=== PATIENT | female | born 1950 | race Caucasian/White ===

== ENCOUNTER 2020-03-09 11:47 | Inpatient (IN) ==
[2020-03-09 12:23] LABS: Basophils # (auto) 0.06 K/uL (0-0.2); Basophils % (auto) 0.8 %; Eosinophils # (auto) 0.48 K/uL (0-0.5); Eosinophils % (auto) 6.5 %; Hematocrit (blood only) 38.9 % (37-47); Hemoglobin 12.6 g/dL (12.0-16.0); Immature Granulocytes # (auto) 0.01 K/uL (0.00-0.02); Immature Granulocytes % (auto) 0.1 %; Lymphocytes # (auto) 2.78 K/uL (1.2-3.4); Lymphocytes % (auto) 37.9 %; Mean Corpuscular Hemoglobin 29.9 pg (25-34); Mean Corpuscular Hgb Conc 32.4 g/dL (32-36); Mean Corpuscular Volume 92.4 fL (80-100); Mean Platelet Volume 10.5 fL (7.4-10.4); Monocytes # (auto) 0.48 K/uL (0.11-0.59); Monocytes % (auto) 6.5 %; Neutrophils # (auto) 3.53 K/uL (1.4-6.5); Neutrophils % (auto) 48.2 %; Platelet Count 285 K/uL (130-400); RDW Coefficient of Variation 13.3 % (11.5-14.5); RDW Standard Deviation 44.4 fL (36.4-46.3); Red Blood Count 4.21 M/uL (4.2-5.4); White Blood Count 7.34 K/uL (4.8-10.8)
[2020-03-09 12:42] LABS: Alanine Aminotransferase 19 U/L (12-78); Albumin Level 3.6 gm/dl (3.4-5.0); Aspartate Aminotransferase 15 U/L (15-37); BUN Creatinine Ratio 14.4 (10-20); Blood Urea Nitrogen 13 mg/dl (7-18); Calcium 9.1 mg/dl (8.5-10.1); Carbon Dioxide 27 mmol/L (21-32); Chloride 108 mmol/L (98-107); Est GFR (African American) 74.6; Est GFR (Non-African American) 64.3; Glucose 89 mg/dl (70-99); Potassium 3.6 mmol/L (3.5-5.1); Sodium 141 mmol/L (136-145)
[2020-03-09 12:52] LABS: Albumin Globulin Ratio 1.1 (0.9-2); Alkaline Phosphatase 122 U/L (45-117); Bilirubin,Total 0.5 mg/dl (0.2-1); Globulin 3.3 gm/dl (2.5-4.0); Total Protein 6.9 gm/dl (6.4-8.2); Troponin I < 0.015 ng/ml (0-0.045)
--- NOTE | 2020-03-09 12:52 | XRay Report ---
XR chest 1V portable CLINICAL HISTORY: weakness COMPARISON STUDY: 03/22/2014 FINDINGS: The cardiac and mediastinal contours are normal. There is no evidence of focal pulmonary co nsolidation. There is no evidence of failure. No pleural effusions are visualized.[There are minor mcqueen bsegmental atelectatic changes at the left lung base. IMPRESSION: No active disease in the chest. ACT 112: Negative or not required by law. Electronically signed by: Jax Romeo M.D. 03/09/2020 12:50 PM
--- NOTE | 2020-03-09 15:38 | History & Physical Report ---
Date of Service March 09, 2020 Assessment & Plan (1) Dizziness: (2) Right leg weakness: -Admit to [facility] [place] with telemetry -Patient presenting from home with reports of an episode of severe dizziness and right leg weakness. Patient has been having issues with ongoing dizziness for the past several months however right leg weakness is new today. -Was evaluated by neuro-ophthalmology and had head and neck CTAs that were unremarkable. Brain MRI 06/2019 unremarkable as well. -Currently asymptomatic -Monitor on telemetry for arrhythmias, update echo -Stat head CT -Brain MRI/MRA, neck MRA -Neurology consult, Dr. Wilkins notified (3) DM type 2 (diabetes mellitus, type 2): -Hgb A1c 6.6 01/2020 -Hold oral agents and utilize NovoLog per protocol while hospitalized (4) HTN (hypertension): -BP controlled, continue amlodipine and lisinopril (5) DVT prophylaxis: -SQ Lovenox History of Present Illness Chief Complaint: Dizziness Primary Care Provider: Indira Garcia DO 69 year old female with PMH DM type II, HTN, gastroparesis, and other problems listed below who presents to the ED with reports of dizziness. This has been an ongoing issue for the patient for the past several months. Patient was evaluated by neuro-ophthalmology and head and neck CTAs were ordered and were unremarkable for findings. She also had a brain MRI 06/2019 that was unremarkable as well. Patient also participated in PT for dizziness however she reports no improvement in her symptoms. Patient reports that she woke up this morning feeling very nauseous. When she bent over to put her pants on, she reports she started to feel very dizzy and lightheaded. When she attempted to walk, she reports she felt as though she was drunk. She also stated that her right leg felt weak and could not support her. Her had to help her. She reports that the right leg weakness is new. Patient reports her symptoms persisted so she came to the ED, she reports she is currently not symptomatic. Patient denies any associated difficulty speaking or understanding. No facial droop was noted. Denies any loss of consciousness. Patient reports he otherwise has been feeling well recently. No other recent illnesses, fevers, chills. She denies abdominal pain, vomiting, diarrhea. No chest pain or shortness of breath. Denies any urinary symptoms. In the ED, patient was found to be intermittently bradycardic in the 50s. Vitals are otherwise stable. Labs are unremarkable. Allergies Allergy/AdvReac Type Severity Reaction Status Date / Time codeine Allergy ., Verified 03/09/20 14:08 phenobarbital Allergy . Verified 03/09/20 14:08 adhesive tape AdvReac Rash Unverified 03/09/20 14:08 Home Medications Home Medications Medication Instructions Recorded Confirmed Type amlodipine 2.5 mg PO DAILY 03/09/20 03/09/20 History aspirin [Aspir-81] 81 mg PO DAILY 03/09/20 03/09/20 History atorvastatin 20 mg PO DAILY 03/09/20 03/09/20 History calcium carbonate-vitamin D3 1 tab PO DAILY 03/09/20 03/09/20 History [Calcium 600 + D(3)] cholecalciferol (vitamin D3) 25 mcg PO DAILY 03/09/20 03/09/20 History [Vitamin D3] citalopram 20 mg PO DAILY 03/09/20 03/09/20 History famotidine 20 mg PO DAILY 03/09/20 03/09/20 History ferrous sulfate [iron] 325 mg PO DAILY 03/09/20 03/09/20 History flaxseed oil 1,000 mg PO Q OTHER DAY 03/09/20 03/09/20 History lisinopril 20 mg PO DAILY 03/09/20 03/09/20 History meclizine 25 mg PO TID PRN 03/09/20 03/09/20 History metformin 1,000 mg PO BID 03/09/20 03/09/20 History multivitamin 1 tab PO DAILY 03/09/20 03/09/20 History omeprazole 20 mg PO QAM 03/09/20 03/09/20 History vitamin A-vitamin C-vit E-min 1 tab PO DAILY 03/09/20 03/09/20 History [Ocuvite] Past Med/Surg History Medical History Carpal tunnel syndrome DM type 2 (diabetes mellitus, type 2) Dyslipidemia History of TMJ disorder HTN (hypertension) Surgical History H/O hand surgery History of carpal tunnel release of both wrists History of hysterectomy History of shoulder surgery Hx of cholecystectomy Family History (Updated 03/09/20 @ 16:15 by ADAM Guzman) Father Diabetes Mother Diabetes Social History (Updated 03/09/20 @ 16:16 by ADAM Guzman) Smoking Status: Never smoker Hx Alcohol Use: Yes Alcohol Intake Frequency: Monthly or Less Preferred Language: Surinamese Feels Safe at Home: Yes Review of Systems Review of Systems: ROS per HPI, all other systems reviewed and negative Physical Exam Physical Exam: Please refer to Dr. Blankenship's addendum for physical exam. Results & Data Results & Data ([facility]) Vital Signs (Past 12 Hours) Vital Signs Temp Pulse Pulse Resp BP BP Pulse Ox 03/09/20 15:00 71 15 138/68 96 03/09/20 14:30 51 L 13 173/70 H 95 03/09/20 14:07 64 17 143/63 H 03/09/20 14:06 62 24 03/09/20 13:35 53 L 14 03/09/20 13:34 67 71 20 161/73 H 153/68 H 98 03/09/20 13:31 150/71 H 03/09/20 13:30 65 17 146/67 H 03/09/20 13:00 56 L 15 155/64 H 97 03/09/20 12:30 52 L 16 158/65 H 97 03/09/20 12:08 50 L 14 166/68 H 99 03/09/20 12:07 58 L 21 100 03/09/20 12:02 57 L 17 176/92 H 100 03/09/20 11:51 36.8 C 58 L 18 144/74 H 99 03/09/20 11:48 100 Laboratory Results Short CBC 03/09/20 Range/Units 12:08 WBC 7.34 (4.8-10.8) K/uL Hgb 12.6 (12.0-16.0) g/dL Hct 38.9 (37-47) % Plt Count 285 (130-400) K/uL BMP 03/09/20 12:08 Sodium 141 Potassium 3.6 Chloride 108 H Carbon Dioxide 27 BUN 13 Creatinine 0.90 Glucose 89 Calcium 9.1 Cardiac Enzymes 03/09/20 Range/Units 12:08 Troponin I < 0.015 (0-0.045) ng/ml Liver Function 09/24/20 Range/Units 12:08 Total Bilirubin 0.5 (0.2-1) mg/dl AST 15 (15-37) U/L ALT 19 (12-78) U/L Alkaline Phosphatase 122 H (45-117) U/L Albumin 3.6 (3.4-5.0) gm/dl Diagnostic Findings CXR IMPRESSION: No active disease in the chest. Code Status & VTE Plan Code Status Patient is a full code as per my discussion with her. VTE Prophylaxis Plan VTE Prophylaxis will be ordered: Yes Supervising Physician Co-Signing Physician Notes Patient was seen and examined by me, care coordinated with ADAM Guzman. Please see her note above for further details. Mrs. Hummel is a 69-year-old female with history of hypertension, hyperlipidemia, diabetes mellitus on metformin, history of kidney stones and ongoing history of dizziness. Most recently she was evaluated in outpatient clinic on February 06 and was started on meclizine. On February 10 she saw neuro-ophthalmology, Dr. Lovelace, and at that time concern was for vertebrobasilar insufficiency and optical migraine, CTA of head and neck was recommended. She was then rechecked with her primary care provider on February 21 at that time they recommended that CTA head and neck would be done as soon as possible. She did obtain CTA head and neck on February 24. CTA brain showed mild atherosclerosis internal carotid arteries in the carotid siphons without stenosis. Middle cerebral, anterior cerebral, posterior cerebral arteries and basilar artery unremarkable. CTA neck showed mild atherosclerosis carotid bulb regions bilaterally but without any stenosis. Vertebral arteries unremarkable. Patient also had MRI of her brain in June of this year due to ongoing dizziness and feeling pressure in her head, which did not show any acute intracranial normality. There was minimal chronic white matter change and mild global parenchymal volume loss. Patient also reports that about a year ago she saw physical therapist for Lloyd maneuvers, does not recall general improvement, however patient states that she is usually doing well and she only has these episodes once in a while unexpectedly. Patient presented in the ER today as she woke up with nausea and then after she was dressing herself up she became lightheaded, she also had trouble walking especially reporting right leg weakness. Patient reported that her had to help her walking. She called her primary care office and it was recommended that she would present to the ER for further work-up. Patient did take her meclizine in the morning however it did not seem to help. Patient is lying in bed, she is in no acute distress and says that she feels much better. She reported heaviness at posterior head, especially left side, however now much improved. She also says that she was already able to walk by herself and denies any right lower extremity weakness. Denies any fevers, chills, chest pain, shortness of breath, abdominal pain, nausea or vomiting. Lungs are clear to auscultation bilaterally without any wheezing rhonchi or crackles. Heart sounds regular slightly bradycardic. Abdomen is soft, nontender, nondistended, positive bowel sounds. She has no sensory loss on my physical exam. She is able to move all 4 extremities, and strength is 5 out of 5 in all major muscle groups. PERRL, EOMI, [id number] seems unremarkable. Gait was not assessed. Will admit to telemetry as patient was slightly bradycardic in the ER. No head imaging was done in the emergency room at this point, given her weakness in her right lower extremity (which is new for the patient), patient will likely need further work-up. Her ongoing dizziness, will consult with neurology. Antiemetics as needed. Enoch Blankenship MD
[2020-03-09] MEDS ORDERED: ACETAMINOPHEN 325 MG TAB PO PRN (16:59)
[2020-03-09] MEDS ORDERED: DEXTROSE 50% 50 ML SYRINGE IV PRN (16:59)
[2020-03-09] MEDS ORDERED: CARBOHYDRATES FOR HYPOGLYCEMIA PO PRN (16:59)
[2020-03-09] MEDS ORDERED: GLUCOSE 40% GEL 15 GM TUBE PO PRN (16:59)
[2020-03-09] MEDS ORDERED: GLUCAGON FOR INJ 1 MG VIAL SQ PRN (16:59)
[2020-03-09] MEDS ORDERED: PHARMACIST DISCHARGE MED REC CONSULT PRN (16:59)
[2020-03-09] MEDS ORDERED: GLUCOSE 10 TABS/TUBE PO PRN (16:59)
--- NOTE | 2020-03-09 17:02 | CT Scan Report ---
HEAD CT NONCONTRAST CT DOSE: 614.27 mGy.cm HISTORY: dizziness, right leg weakness TECHNIQUE: Multiaxial CT images of the head were performed without the use of intravenous contrast. A utomated exposure control was utilized for this study. A dose lowering technique was utilized adheri ng to the principles of ALARA. Comparison: None. Findings: The paranasal sinuses and mastoid air cells are clear. The calvarium and skull base are int act. There is no mass, hematoma, midline shift, acute infarct. White matter hypodensity is nonspecifi c but suggestive of microvascular ischemic change. The ventricles and sulci demonstrate mild age-rela jacob involutional changes. Impression: No acute intracranial abnormality. Atrophy and microvascular ischemic changes. ACT 112: Negative or not required by law. Electronically signed by: Dario Bradshaw M.D. 03/09/2020 5:01 PM
[2020-03-09] MEDS ORDERED: MECLIZINE HCL 25 MG TAB PO PRN (17:07)
[2020-03-09] MEDS ORDERED: CLOPIDOGREL BISULFATE 75 MG TAB PO ONE (17:15)
[2020-03-09] MEDS: INSULIN ASPART 100 UNITS/ML 3 ML PEN SC SCH ×2 (17:40→20:51)
[2020-03-09 17:42] LABS: Appearance Urine Clear (Clear); Bacteria Urine Automated Negative (Negative); Bilirubin Urine Negative (Negative); Blood Urine Negative (Negative); Cast Urine Automated 0 /lpf (0-5); Color Urine Yellow; Glucose Urine UA Negative (Negative); Ketones Urine Negative (Negative); Leukocyte Esterase Urine 2+ (Negative); Nitrite Urine Negative (Negative); Protein Urine Negative (Negative); RBC Urine Automated 0-4 /hpf (0-4); Specific Gravity Urine 1.006 (1.000-1.030); Urobilinogen Urine Negative (Negative)
--- NOTE | 2020-03-09 17:55 | Emergency Department Note ---
History of Present Illness General Chief complaint: Dizziness Stated complaint: DIZZY, NAUSEAS, LIGHTHEADED, WEAKNESS IN LEGS Time Seen by Provider: 03/09/20 12:54 History of Present Illness Provider complaint: Dizziness Onset (ago): month(s) Location: head Radiation: non-radiation Severity: mild Maximum Pain Intensity: 3 Associated symptoms: + weakness; no confusion, no chest pain, no cough, no fever/chills, no headaches, no nausea/vomiting and no shortness of breath 69-year-old female presents emergency department with lightheadedness. Patient reports she has been feeling lightheaded for many months to years. She states she feels "wobbly". Patient reports symptoms of near syncope. She reports nausea. She states she has a prescription for meclizine and took that today but it did not help. She denies any chest pain, fever, loss of taste or smell, difficulty breathing, headache, hematuria, dysuria, melena, hematochezia, or vomiting. Patient states that she had a CT scan done recently at [facility]. Home Medications Home Medications Medication Instructions Recorded Confirmed Type amlodipine 2.5 mg PO DAILY 03/09/20 03/09/20 History aspirin [Aspir-81] 81 mg PO DAILY 03/09/20 03/09/20 History atorvastatin 20 mg PO DAILY 03/09/20 03/09/20 History calcium carbonate-vitamin D3 1 tab PO DAILY 03/09/20 03/09/20 History [Calcium 600 + D(3)] cholecalciferol (vitamin D3) 25 mcg PO DAILY 03/09/20 03/09/20 History [Vitamin D3] citalopram 20 mg PO DAILY 03/09/20 03/09/20 History famotidine 20 mg PO DAILY 03/09/20 03/09/20 History ferrous sulfate [iron] 325 mg PO DAILY 03/09/20 03/09/20 History flaxseed oil 1,000 mg PO Q OTHER DAY 03/09/20 03/09/20 History lisinopril 20 mg PO DAILY 03/09/20 03/09/20 History meclizine 25 mg PO TID PRN 03/09/20 03/09/20 History metformin 1,000 mg PO BID 03/09/20 03/09/20 History multivitamin 1 tab PO DAILY 03/09/20 03/09/20 History omeprazole 20 mg PO QAM 03/09/20 03/09/20 History vitamin A-vitamin C-vit E-min 1 tab PO DAILY 03/09/20 03/09/20 History [Ocuvite] Allergies Allergy/AdvReac Type Severity Reaction Status Date / Time codeine Allergy ., Verified 03/09/20 14:08 phenobarbital Allergy . Verified 03/09/20 14:08 adhesive tape AdvReac Rash Unverified 03/09/20 14:08 Past Med/Surg History Medical History Carpal tunnel syndrome DM type 2 (diabetes mellitus, type 2) Dyslipidemia History of TMJ disorder HTN (hypertension) Surgical History H/O hand surgery History of carpal tunnel release of both wrists History of hysterectomy History of shoulder surgery Hx of cholecystectomy Family History Father Diabetes Mother Diabetes Social History Smoking Status: Never smoker Hx Alcohol Use: Yes Alcohol type: other Alcohol Intake Frequency: Monthly or Less Hx Substance Use: No Preferred Language: American Communication Ability: Effective Corrective Therapist Required: No Beliefs That Will Affect Care: None Current Living Situation: Spouse Other Information That Helps Us Care for You: No Feels Safe at Home: Yes Safety Concerns: Feels Safe At This Time Assistive Devices: Glasses Review of Systems A total of 10 systems reviewed and were otherwise negative Physical Exam Vital Signs Vital Signs - 24 hr 03/09/20 11:48 03/09/20 11:51 03/09/20 12:02 Temperature 36.8 C Temperature Source Oral Pulse Rate - Lying Pulse Rate - Sitting Pulse Rate - Standing Pulse Rate 58 L 57 L Pulse Rate [Apical] Pulse Rate from SpO2 Sensor 56 L Pulse Rhythm Regular Pulse Rhythm [Apical] Pulse Strength Normal Pulse Strength [Apical] Respiratory Rate 18 17 Respiratory Effort / Characteristics Respiratory Depth Respiratory Pattern Blood Pressure - Lying Blood Pressure - Sitting Blood Pressure- Standing Blood Pressure 144/74 H 176/92 H Blood Pressure [Left Arm] Blood Pressure Mean 97 119 Blood Pressure Mean [Left Arm] Blood Pressure Position Sitting Blood Pressure Position [Left Arm] Pulse Oximetry 100 99 100 Oxygen Delivery Method Room Air Sepsis Recent Fever Within 48 Hours No Sepsis New/Unexplained Change in Mental Status No Sepsis Action Taken by Nursing No Action Required 03/09/20 12:07 03/09/20 12:08 03/09/20 12:30 Temperature Temperature Source Pulse Rate - Lying Pulse Rate - Sitting Pulse Rate - Standing Pulse Rate 58 L 50 L 52 L Pulse Rate [Apical] Pulse Rate from SpO2 Sensor 57 L 51 L 53 L Pulse Rhythm Pulse Rhythm [Apical] Pulse Strength Pulse Strength [Apical] Respiratory Rate 21 14 16 Respiratory Effort / Characteristics Respiratory Depth Respiratory Pattern Blood Pressure - Lying Blood Pressure - Sitting Blood Pressure- Standing Blood Pressure 166/68 H 158/65 H Blood Pressure [Left Arm] Blood Pressure Mean 100 95 Blood Pressure Mean [Left Arm] Blood Pressure Position Blood Pressure Position [Left Arm] Pulse Oximetry 100 99 97 Oxygen Delivery Method Sepsis Recent Fever Within 48 Hours Sepsis New/Unexplained Change in Mental Status Sepsis Action Taken by Nursing 03/09/20 13:00 03/09/20 13:30 03/09/20 13:31 Temperature Temperature Source Pulse Rate - Lying Pulse Rate - Sitting Pulse Rate - Standing Pulse Rate 56 L 65 Pulse Rate [Apical] Pulse Rate from SpO2 Sensor 54 L Pulse Rhythm Pulse Rhythm [Apical] Pulse Strength Pulse Strength [Apical] Respiratory Rate 15 17 Respiratory Effort / Characteristics Respiratory Depth Respiratory Pattern Blood Pressure - Lying Blood Pressure - Sitting Blood Pressure- Standing Blood Pressure 155/64 H 146/67 H 150/71 H Blood Pressure [Left Arm] Blood Pressure Mean 87 92 86 Blood Pressure Mean [Left Arm] Blood Pressure Position Blood Pressure Position [Left Arm] Pulse Oximetry 97 Oxygen Delivery Method Sepsis Recent Fever Within 48 Hours Sepsis New/Unexplained Change in Mental Status Sepsis Action Taken by Nursing 03/09/20 13:34 03/09/20 13:35 03/09/20 14:06 Temperature Temperature Source Pulse Rate - Lying 60 Pulse Rate - Sitting 71 Pulse Rate - Standing 72 Pulse Rate 67 53 L 62 Pulse Rate [Apical] 71 Pulse Rate from SpO2 Sensor Pulse Rhythm Pulse Rhythm [Apical] Regular Pulse Strength Pulse Strength [Apical] Normal Respiratory Rate 20 14 24 Respiratory Effort / Characteristics Non-Labored Spontaneous Respiratory Depth Normal Respiratory Pattern Regular Blood Pressure - Lying 146/67 H Blood Pressure - Sitting 153/68 H Blood Pressure- Standing 150/71 H Blood Pressure 161/73 H Blood Pressure [Left Arm] 153/68 H Blood Pressure Mean 112 Blood Pressure Mean [Left Arm] 96 Blood Pressure Position Blood Pressure Position [Left Arm] Sitting Pulse Oximetry 98 Oxygen Delivery Method Room Air Sepsis Recent Fever Within 48 Hours Sepsis New/Unexplained Change in Mental Status Sepsis Action Taken by Nursing 03/09/20 14:07 03/09/20 14:30 03/09/20 15:00 Temperature Temperature Source Pulse Rate - Lying Pulse Rate - Sitting Pulse Rate - Standing Pulse Rate 64 51 L 71 Pulse Rate [Apical] Pulse Rate from SpO2 Sensor 50 L 72 Pulse Rhythm Pulse Rhythm [Apical] Pulse Strength Pulse Strength [Apical] Respiratory Rate 17 13 15 Respiratory Effort / Characteristics Respiratory Depth Respiratory Pattern Blood Pressure - Lying Blood Pressure - Sitting Blood Pressure- Standing Blood Pressure 143/63 H 173/70 H 138/68 Blood Pressure [Left Arm] Blood Pressure Mean 69 95 92 Blood Pressure Mean [Left Arm] Blood Pressure Position Blood Pressure Position [Left Arm] Pulse Oximetry 95 96 Oxygen Delivery Method Sepsis Recent Fever Within 48 Hours Sepsis New/Unexplained Change in Mental Status Sepsis Action Taken by Nursing Physical Exam GENERAL: She is oriented to person, place, and time. She appears well-developed and well-nourished. She does not appear distressed. HENT: Exam performed. -Head: Normocephalic and atraumatic. -Right Ear: External ear normal. No mastoid tenderness. -Left Ear: External ear normal. No mastoid tenderness. -Mouth/Throat: The oropharynx is clear and moist. No trismus in the jaw. No dental abscesses or uvula swelling. No oropharyngeal exudate or tonsillar abscesses. EYES: Conjunctivae and EOM are normal. Pupils are equal, round, and reactive to light. Right eye exhibits no discharge. Left eye exhibits no discharge. No scleral icterus. NECK: Normal range of motion. Neck supple. No JVD present. No spinous process tenderness present. No carotid bruit present. No rigidity. No tracheal deviation and normal range of motion present. No Brudzinski's sign and no Kernig's sign noted. CV: Normal rate, regular rhythm, normal heart sounds and intact distal pulses. There is no peripheral edema. Palpable radial pulses bue. PULM/CHEST: Effort normal and breath sounds normal. No respiratory distress. No stridor. She has no wheezes. She has no rales. -Chest Wall: She exhibits no tenderness. ABD: The abdomen is soft. Bowel sounds are normal. She has no distension. No mass is present. There is no tenderness. There is no rebound, no guarding, no Hill's sign and no tenderness at McBurney's point. Rovsig negative MUSC/SKEL: Normal range of motion. There is no peripheral edema, tenderness or deformity. LYMPH: No cervical adenopathy. NEURO: She is alert and oriented to person, place, and time. She has normal strength. No cranial nerve deficit or sensory deficit. Coordination and gait normal. GCS eye subscore is 4. GCS verbal subscore is 5. GCS motor subscore is 6. Cerebellar tests wnl. NIHSS: 0 SKIN: Skin is warm and dry. She is not diaphoretic. PSYCH: She has a normal mood and affect. Behavior is normal. Judgment and thought content normal. Course Course 1254: The patient was evaluated in room B7. A complete history and physical exam was performed. Cardiac monitoring: An order was placed for continuous cardiac monitoring. The monitor shows a rate of 60 with sinus rhythm 1605: Vital signs stable. 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 Repeat physical exam within normal limits. Labs and imaging within normal limits. Patient was offered inpatient observation for syncope/near syncope. Patient states she has had this problem for many months and wants answers as to why this is happening and is in agreement to be brought into the hospital under the hospitalist service for work-up of syncope/near syncope. Discussed the case with Stephanie guevara who stated to admit to Dr. Fiore Administered Medications Insulin Aspart (Insulin Aspart 100 Units/Ml 3 Ml Pen) 0 units SC [facility] Stop: 04/08/20 16:58 Last Admin: 03/09/20 17:40 Dose: Not Given Documented by: [id number] Cosigned by: [id number] Discontinued Medications Clopidogrel Bisulfate (Clopidogrel Bisulfate 75 Mg Tab) 75 mg PO NOW ONE Stop: 03/09/20 17:16 Last Admin: 03/09/20 17:36 Dose: 75 mg Documented by: [id number] Medical Decision Making Laboratory Data Result diagrams: 03/09/20 12:08 03/09/20 12:08 Lab Results 03/09/20 03/09/20 03/09/20 Range/Units 12:08 12:08 12:08 WBC 7.34 (4.8-10.8) K/uL RBC 4.21 (4.2-5.4) M/uL Hgb 12.6 (12.0-16.0) g/dL Hct 38.9 (37-47) % MCV 92.4 (80-100) fL MCH 29.9 (25-34) pg MCHC 32.4 (32-36) g/dL RDW Std Deviation 44.4 (36.4-46.3) fL RDW Coeff of Cl 13.3 (11.5-14.5) % Plt Count 285 (130-400) K/uL MPV 10.5 H (7.4-10.4) fL Immature Gran % (Auto) 0.1 % Neut % (Auto) 48.2 % Lymph % (Auto) 37.9 % [place] % (Auto) 6.5 % Eos % (Auto) 6.5 % Baso % (Auto) 0.8 % Neut # (Auto) 3.53 (1.4-6.5) K/uL Lymph # (Auto) 2.78 (1.2-3.4) K/uL [place] # (Auto) 0.48 (0.11-0.59) K/uL Eos # (Auto) 0.48 (0-0.5) K/uL Baso # (Auto) 0.06 (0-0.2) K/uL Immature Gran # (Auto) 0.01 (0.00-0.02) K/uL Sodium 141 (136-145) mmol/L Potassium 3.6 (3.5-5.1) mmol/L Chloride 108 H (98-107) mmol/L Carbon Dioxide 27 (21-32) mmol/L Anion Gap 6.0 (3-11) BUN 13 (7-18) mg/dl Creatinine 0.90 (0.6-1.2) mg/dl Est Cr Clr Drug Dosing Not Reportable Est GFR ( Amer) 74.6 Est GFR (Non-Af Amer) 64.3 BUN/Creatinine Ratio 14.4 (10-20) Glucose 89 (70-99) mg/dl Calcium 9.1 (8.5-10.1) mg/dl Total Bilirubin 0.5 (0.2-1) mg/dl AST 15 (15-37) U/L ALT 19 (12-78) U/L Alkaline Phosphatase 122 H (45-117) U/L Troponin I < 0.015 (0-0.045) ng/ml Total Protein 6.9 (6.4-8.2) gm/dl Albumin 3.6 (3.4-5.0) gm/dl Globulin 3.3 (2.5-4.0) gm/dl Albumin/Globulin Ratio 1.1 (0.9-2) TSH 2.190 (0.300-4.500) uIu/ml Hepatitis C Ab Screen Neg (Neg) Imaging Data Radiologist's Impression: XR chest 1V portable CLINICAL HISTORY: weakness COMPARISON STUDY: 03/22/2014 FINDINGS: The cardiac and mediastinal contours are normal. There is no evidence of focal pulmonary consolidation. There is no evidence of failure. No pleural effusions are visualized.[There are minor subsegmental atelectatic changes at the left lung base. IMPRESSION: No active disease in the chest. ACT 112: Negative or not required by law. Electronically signed by: Jax Romeo M.D. 03/09/2020 12:50 PM Dictated: 03/09/20 1250 Transcribed: 03/09/20 1250 ECG Data Indication: + altered mental status Rate (beats per minute): 58 Rhythm: + normal sinus ECG Intervals/blocks: + Normal QRS, + Normal MD and + Normal QT-c ECG ST segments: + Normal ST segments MDM Narrative Vital signs stable. 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 Repeat physical exam within normal limits. Labs and imaging within normal limits. Patient was offered inpatient observation for syncope/near syncope. Patient states she has had this problem for many months and wants answers as to why this is happening and is in agreement to be brought into the hospital under the hospitalist service for work-up of syncope/near syncope. Discussed the case with Stephanie guevara who stated to admit to Dr. Fiore Impression & Plan Dizziness Discharge Plan Visit Data Chief Complaint: Dizziness Stated Complaint: DIZZY, NAUSEAS, LIGHTHEADED, WEAKNESS IN LEGS ED Provider: Grant Macias Discharge Problem: Dizziness Patient Disposition: Admitted As Inpatient Discharge Instructions Interventions: ED Discharge Assessment Last Done: 03/09/20 16:05
--- NOTE | 2020-03-09 18:51 | Consultation Report ---
DATE OF CONSULTATION: 03/09/2020 REASON FOR CONSULTATION: Dizziness, leg weakness. HISTORY OF PRESENT ILLNESS: The patient is a 69-year-old right-handed female with history of diabetes, diabetic neuropathy and diabetic gastroparesis, hypertension and a history of migraine. On this background, the patient had an episode today; upon early this morning, she noted some left occipital pressure, which is not unusual for her and some nausea. Somewhat later in the morning when she attempted to stand, she noted sudden imbalance and difficulty moving her right leg. She denies any rosas true vertigo or visual dimming or hearing muffling associated. There were no other neurologic symptoms such as change in vision, numbness in the face or body, dysarthria, or dysphagia. The sense of instability lasted at least 4 hours. It has now resolved. Several weeks ago when the patient was having a CTA, when she got up from the CT table, she felt off balance without lightheadedness, vertigo or other neurologic symptoms. This lasted approximately a half an hour and resolved spontaneously. On another occasion, she has had the sense when she stands that she briefly feels off balance and slightly lightheaded and that will respond within seconds with continued standing. She has had other episodes where she has true vertigo, typically lasting less than 10 minutes, sometimes with the episode, she feels like she is propelled in a direction. There are generally no clear otologic symptoms associated with this. She thinks she has some mild hearing loss in the right ear as diagnosed by [facility] [place]. She has occasional nonpulsatile tinnitus in the right ear. There is no ear pain or pressure. There is no fluctuating hearing loss with these episodes. Her mother had Meniere's disease. The patient also gets occasional positional vertigo. When she has had these episodes, they are worse if she rides in a car and better if she closes her eyes. She has otherwise been well. She has not had any recent head or neck injury, chest pain, palpitation, shortness of breath, medical or dental procedures. She has no history of stroke, transient ischemic attack, rheumatic fever, atrial fibrillation, no history of cancer or DVT. She has had an outpatient MRI of the brain in 06/2019, which was said to be normal and an outpatient CTA of the head and neck within the last several months, which was said to show no high-grade stenosis. A CT on this admission shows mild atrophy and mild chronic white matter changes. Laboratory data notable for normal white count, hemoglobin, hematocrit and platelet count. Chloride 108. Otherwise, electrolytes unremarkable. Alkaline phosphatase 122, blood sugar 89. The patient's electrocardiogram showed sinus bradycardia and was otherwise unremarkable. PAST MEDICAL HISTORY: Notable for the above, additionally TMJD. PAST SURGICAL HISTORY: Hand surgery, carpal tunnel release bilaterally, hysterectomy, shoulder surgery, cholecystectomy. FAMILY HISTORY: Diabetes. Mother, Meniere's. Grandmothers with stroke. SOCIAL HISTORY: Nonsmoker, nondrinker. ALLERGIES: CODEINE, PHENOBARBITAL, AND ADHESIVE TAPE. HOME MEDICATIONS: Amlodipine, aspirin, atorvastatin, calcium and vitamin D, vitamin D3, Celexa, famotidine, iron, flaxseed oil, lisinopril, meclizine, metformin, multiple vitamins, omeprazole, Ocuvite. PHYSICAL EXAMINATION: VITAL SIGNS: The patient is afebrile, pulse 52 (lowest of 50), blood pressure 169/71. GENERAL: The patient is awake and alert. She is a good historian. Speech and language are normal and her affect is appropriate. No carotid, vertebral or supraclavicular bruits. HEART: No heart murmurs are appreciable. Heart has regular rate and rhythm. LUNGS: Clear. EXTREMITIES: No calf swelling is noted. NEUROLOGIC: Pupils are postsurgical. I had difficulty visualizing the optic nerves. There were normal diehl. Motility appeared fairly unremarkable without nystagmus. Normal facial sensation and facial symmetry. Tongue is midline. Gross hearing appears to be intact bilaterally. Strength is full. There is no drift. There is normal rapid alternating movements. Symmetric reflexes. Diminished ankle jerks, downgoing toes. Mid calf level to temperature. [id number] and [id number] are normal. No dysdiadochokinesia. Gait was not tested. Provocative head maneuvers were negative. IMPRESSION AND PLAN: 1. This most recent episode of head pain, nausea, instability and right leg weakness is reminiscent of a transient ischemic attack. Recommend MRI of the brain, MRA of the head and neck, and vascular workup including telemetric monitoring, and echocardiogram. In the interim, we would add Plavix to aspirin. 2. This patient sounds as if she has episodes of orthostatic hypotension. This goes along with her history of diabetic gastroparesis and diabetic neuropathy. Would recommend checking orthostatics. 3. The patient appears to have [id number] bradycardia, would recommend monitoring. 4. This patient has had symptoms of a peripheral labyrinthopathy with vertigo with change in head position. 5. The patient has a family history of Meniere's. I would recommend that she be seen by [facility] for further evaluation. 6. Episodic migraine, not specifically discussed. Dr. Mcdonald will take over the service tomorrow. ALIZA
[2020-03-09] MEDS ORDERED: ENOXAPARIN INJ 40 MG/0.4 ML SYR SQ SCH (21:00)
[2020-03-09] MEDS ORDERED: GADOBUTROL 65ML VIAL IV ONE (22:09)
[2020-03-10 06:31] LABS: Hematocrit (blood only) 38.2 % (37-47); Hemoglobin 12.3 g/dL (12.0-16.0); Mean Corpuscular Hemoglobin 30.2 pg (25-34); Mean Corpuscular Hgb Conc 32.2 g/dL (32-36); Mean Corpuscular Volume 93.9 fL (80-100); Mean Platelet Volume 10.8 fL (7.4-10.4); Platelet Count 287 K/uL (130-400); RDW Coefficient of Variation 13.3 % (11.5-14.5); RDW Standard Deviation 46.1 fL (36.4-46.3); Red Blood Count 4.07 M/uL (4.2-5.4)
[2020-03-10 07:03] LABS: Calcium 9.8 mg/dl (8.5-10.1); Creatinine Clr Calc Pharmacy 49.8 ml/min; Est GFR (African American) 64.9
--- NOTE | 2020-03-10 07:14 | Magnetic Resonance Report ---
Brain MRA HISTORY: dizziness, right leg weakness TECHNIQUE: 3-D [id number] MRA of the brain was performed without contrast. COMPARISON STUDY: None. FINDINGS: Visualized intracranial internal carotid arteries, distal vertebral arteries, and basilar a rtery are widely patent. There is no significant stenosis, occlusion, or aneurysm seen within the palma ateral ACAs, MCAs, or econometrician. The left P1 is hypoplastic. The left PRECISION LENS CENTERER AND EDGER is fed primarily through the lef t posterior communicating artery. This is consistent with a normal variant. IMPRESSION: No significant stenosis, occlusion, or aneurysm within the makah of Sin. ACT 112: Negative or not required by law. Electronically signed by: Dario Bradshaw M.D. 03/10/2020 7:13 AM
--- NOTE | 2020-03-10 07:49 | Magnetic Resonance Report ---
NECK MRA HISTORY: Headache, difficulty with balance. Possible stroke. dizziness, right leg weakness TECHNIQUE: [id number] and gadolinium-enhanced MRA of the neck was performed both before and after the intravenous administration of contrast. All measurements were calculated based on NASCET criteri a. COMPARISON STUDY: Carotid Doppler ultrasound dated 03/16/2011 FINDINGS: The aortic arch and proximal great vessels are widely patent. There is no significant sten osis, occlusion, or dissection identified within the bilateral common carotid, internal carotid, or v ertebral arteries. The left vertebral artery appears dominant. There is mild tapering of the distal r ight humeral artery, but a definite dissection is not identified. IMPRESSION: No significant stenosis, occlusion, or dissection identified within the carotid or vertebral arteries . ACT 112: Negative or not required by law. Electronically signed by: Jax Romeo M.D. 03/10/2020 7:48 AM
--- NOTE | 2020-03-10 08:23 | Magnetic Resonance Report ---
MR brain wo/w con HISTORY: 69 years-old Female dizziness, right leg weakness acute on chronic dizziness with right leg weakness and headache. COMPARISON: MRA head and neck of same day TECHNIQUE: Multiplanar multisequence MRI of the brain was obtained both with and without the use of 7 .0 mL Gadavist FINDINGS: Cap Machine Operator localizer images demonstrate no gross extracranial abnormality. No restricted diffusion to sugg est acute or subacute infarct. Midline structures including the corpus callosum, brainstem, optic chi asm, pituitary and pineal glands appear unremarkable the sagittal T1 series. No cerebellar tonsillar herniation. Degenerative changes are noted involving the imaged cervical spine. No acute intracranial hemorrhage, midline shift, abnormal extra-axial collection, hydrocephalus or intracranial mass. No s ignificant T2/FLAIR signal abnormalities of the brain parenchyma. There is no abnormal intra-axial or extra-axial enhancement. The major vascular flow voids and cerebral venous sinuses are patent. Masto id air cells are clear. Prior bilateral lens replacement. Skull and soft tissues are unremarkable. Th e sinuses appear clear. IMPRESSION: 1. No acute intracranial abnormality, specifically there is no evidence of acute or subacute infarct. 2. No abnormal enhancement. ACT 112: Negative or not required by law. The above report was generated using voice recognition software. It may contain grammatical, syntax o r spelling errors. Electronically signed by: Jluis Camacho M.D. 03/10/2020 8:22 AM
[2020-03-10] MEDS ORDERED: ASPIRIN 81 MG ECTAB PO SCH (09:00)
[2020-03-10] MEDS ORDERED: CITALOPRAM 20 MG TAB PO SCH (09:00)
[2020-03-10] MEDS ORDERED: AMLODIPINE BESYLATE 5 MG TAB PO SCH (09:00)
[2020-03-10] MEDS ORDERED: FERROUS SULFATE 325 MG TAB PO SCH (09:00)
[2020-03-10] MEDS ORDERED: PANTOprazole 40 MG TAB PO SCH (09:00)
[2020-03-10] MEDS ORDERED: FAMOTIDINE 20 MG TAB PO SCH (09:00)
[2020-03-10] MEDS ORDERED: lisinopriL 20 MG TAB PO SCH (09:00)
[2020-03-10] MEDS ORDERED: ATORVASTATIN 20 MG TAB PO SCH (09:00)
[2020-03-10] MEDS ORDERED: CLOPIDOGREL BISULFATE 75 MG TAB PO SCH (09:00)
[2020-03-10] MEDS: INSULIN ASPART 100 UNITS/ML 3 ML PEN SC SCH ×3 (09:05→17:06)
--- NOTE | 2020-03-10 12:46 | Electrocardiogram Report ---
Test Reason : Blood Pressure : / mmHG Vent. Rate : 058 BPM Atrial Rate : 058 BPM P-R Int : 140 ms QRS Dur : 088 ms QT Int : 446 ms P-R-T Axes : 033 001 015 degrees QTc Int : 437 ms Sinus bradycardia Otherwise normal ECG When compared with ECG of 22-MAR-2014 10:51, No significant change was found Confirmed by Curtis Ledesma ([id number]) on 03/10/2020 12:45:55 PM Referred By: ED Confirmed By:Curtis Ledesma
--- NOTE | 2020-03-10 16:15 | Communication Note ---
Date of Service: March 10, 2020 I am following up on Jillian Hummel today and and pleased to report that her imaging studies showed no evidence for a new vascular event or significant extra or intracranial arterial disease and she is back to baseline has had no further episodes of transient right leg clumsiness. She has been at bedrest so we do not know if she is going to have orthostatic symptoms but her history certainly suggest orthostatic hypotension and she is a diabetic with gastroparesis and other autonomic dysfunction so I would expect some orthostasis to be present in her case and instructed both she and her about how to monitor this at home. She has a history of vertigo both chronic to some degree and episodic and has been at [facility] at physical [facility] with all therapeutic modalities utilized being relatively ineffective to date She also suffers from migraine headaches and is followed up in neuro- ophthalmology at [facility] by Dr. Lovelace who has suggested that she needs Botox therapy. I am not sure what has been tried for migraines in the past that she has never been seen by our group here at [facility] for treatment of migraines and it sounds as though most of the treatments been done through neuro- ophthalmology at [facility] She is aware of Botox but does not seem to be aware of the new injectable calcitonin gene receptor antagonist and might be a candidate for them with her chronic daily migraines At this point I see no need to maintain Plavix and aspirin together as we really have no evidence that this was a TIA (the history is vague and imaging really is negative for large vessel disease and small vessel TIAs certainly cannot be excluded and she does have some small vessel changes on MRI but frankly less she continues to do this I think the risk of dual antiplatelet therapy is higher than its benefit in the setting. The other recommendations made by Dr. Grant seem reasonable although the [facility] has already seen her in [place] and [facility] has not seen her here so not sure revisit to those institutions will help She does need to have her orthostatic blood pressures checked and are going to do this at home and she might be someone who would benefit from seeing Dr. Grant regularly for headache management These decisions will have to be up to her primary care physician and are of things it could be done on an outpatient basis. If she indeed eventually needs Botox for headache control then it could be available here with Dr. Dorian Sahu at [facility] Her brief neurologic examination today revealed her to be alert cooperative oriented in 3 spheres with no extraocular dysmotility no induction of vertigo with head movement normal facial motility and strength NEUROLOGICAL: Alert, oriented, and cooperative. Cranial nerves, sensation and strength grossly intact. Pupils round, equal, and react to light, EOMs are full. Rapid repetitive motions and without any weakness drift or pronation sign and with normal sensory examination allowing for some diabetic nerve findings in the lower extremities and affected by sensory loss and there was specifically no significant clumsiness of the right leg For now I see no reason to hold her in the hospital and think she can be discharged on her regular medications only without the need to add Plavix Sean Mcdonald MD
--- NOTE | 2020-03-10 17:23 | Hospitalist Progress Note ---
Date of Service March 10, 2020 Assessment & Plan (1) Dizziness: (2) Right leg weakness: Strokelike symptoms Transient right leg weakness Chronic dizziness Chronic daily Migraine H/O Vertigo Follows with neuro-ophthalmology --Brain MRI:No acute intracranial abnormality, specifically there is no evidence of acute or subacute infarct. No abnormal enhancement. --Head CT:No acute intracranial abnormality. Atrophy and microvascular ischemic changes. --Brain MRA:No significant stenosis, occlusion, or aneurysm within the [place] of [place]. --Neck MRA:No significant stenosis, occlusion, or dissection identified within the carotid or vertebral arteries. --ECHO: Left ventricle is normal in size. Mild concentric LVH. Left ventricle wall motion is normal. EF 55 to 60%. Aortic valve sclerosis mild, without significant aortic valvular stenosis. Trace mitral regurgitation. --Orthostatics: Normal --LDL:58 --Continue aspirin, Lipitor --Appreciate Neurology Input --Right leg weakness resolved --Imaging studies not suggestive of any ischemic process/acute intracranial p rocess --DD: autonomic dysfunction --Patient may be a candidate for injectable calcitonin gene receptor antagonist as having chronic daily migraines. --No indication for adding Plavix as per neurology. --Advised to follow-up with neurology as outpatient. (3) DM type 2 (diabetes mellitus, type 2): -Hgb A1c 6.6 01/2020 Hold oral agents Utilize NovoLog per protocol while hospitalized (4) HTN (hypertension): BP Stable continue amlodipine and lisinopril (5) DVT prophylaxis: SQ Lovenox Admission and Anticipated Discharge Date Admission Date: March 10, 2020 Subjective Patient is seen and examined at bedside Reports mild headache Dizziness much improved Right Leg weakness resolved Discussed with neurology today Offers no other complaints Denies chest pain, shortness of breath, nausea, abdominal pain Review of Systems Review of Systems: All systems reviewed & are unremarkable except as noted in HPI & below Physical Exam Physical Exam: Physical Exam: Vitals signs as noted above General Appearance:Moderately built and nourished, no apparent distress Head: normocephalic, Atraumatic Eyes: normal inspection, EOMI Neck: supple, Trachea midline Respiratory/Chest: Normal breath sounds, CTA Cardiovascular: S1, S2, No murmur, Bradycardia Abdomen/GI:Soft, Non tender, Bowel sounds present Extremities/Musculoskelatal:normal inspection, no edema Neurologic/Psych:AAOX3, grossly no focal neurological deficits Skin: normal color, warm Results & Data Results & Data ([facility]) Vital Signs (Past 12 Hours) Vital Signs Temp Pulse Pulse Resp BP Pulse Ox Pulse Ox 03/10/20 15:12 36.7 C 58 L 18 115/70 99 03/10/20 14:20 61 03/10/20 14:06 96 03/10/20 11:28 36.4 C L 66 18 126/63 97 03/10/20 08:00 58 L 03/10/20 07:21 36.8 C 56 L 18 126/76 94 Pulse Ox 03/10/20 15:12 03/10/20 14:20 03/10/20 14:06 97 03/10/20 11:28 03/10/20 08:00 03/10/20 07:21 Laboratory Results Short CBC 03/10/20 Range/Units 05:26 WBC 6.50 (4.8-10.8) K/uL Hgb 12.3 (12.0-16.0) g/dL Hct 38.2 (37-47) % Plt Count 287 (130-400) K/uL BMP 03/10/20 05:26 Sodium 143 Potassium 4.0 Chloride 109 H Carbon Dioxide 26 BUN 16 Creatinine 1.01 Glucose 119 H Calcium 9.8 Urine 03/09/20 Range/Units 17:00 Urine Color Yellow Urine Appearance Clear (Clear) Urine pH 7.0 (4.5-7.5) Ur Specific [place] 1.006 (1.000-1.030) Urine Protein Negative (Negative) Urine Glucose (UA) Negative (Negative)
[2020-03-10] MEDS ORDERED: STROKE PATIENT DISCHARGE STA (17:30)
--- NOTE | 2020-03-10 17:54 | Discharge Summary ---
Date of Service March 10, 2020 Admission HPI Per Admitting Provider 69 year old female with PMH DM type II, HTN, gastroparesis, and other problems listed below who presents to the ED with reports of dizziness. This has been an ongoing issue for the patient for the past several months. Patient was evaluated by neuro-ophthalmology and head and neck CTAs were ordered and were unremarkable for findings. She also had a brain MRI 06/2019 that was unremarkable as well. Patient also participated in PT for dizziness however she reports no improvement in her symptoms. Patient reports that she woke up this morning feeling very nauseous. When she bent over to put her pants on, she reports she started to feel very dizzy and lightheaded. When she attempted to walk, she reports she felt as though she was drunk. She also stated that her right leg felt weak and could not support her. Her had to help her. She reports that the right leg weakness is new. Patient reports her symptoms persisted so she came to the ED, she reports she is currently not symptomatic. Patient denies any associated difficulty speaking or understanding. No facial droop was noted. Denies any loss of consciousness. Patient reports he otherwise has been feeling well recently. No other recent illnesses, fevers, chills. She denies abdominal pain, vomiting, diarrhea. No chest pain or shortness of breath. Denies any urinary symptoms. In the ED, patient was found to be intermittently bradycardic in the 50s. Vitals are otherwise stable. Labs are unremarkable. Admission Exam Per Admitting Provider Lungs are clear to auscultation bilaterally without any wheezing rhonchi or crackles. Heart sounds regular slightly bradycardic. Abdomen is soft, nontender, nondistended, positive bowel sounds. She has no sensory loss on my physical exam. She is able to move all 4 extremities, and strength is 5 out of 5 in all major muscle groups. PERRL, EOMI, [id number] seems unremarkable. Gait was not assessed. Principal Diagnosis Stroke like symptoms Dizziness Migraine Discharge Data Allergies Allergy/AdvReac Type Severity Reaction Status Date / Time codeine Allergy ., Verified 03/09/20 14:08 phenobarbital Allergy . Verified 03/09/20 14:08 adhesive tape AdvReac Rash Unverified 03/09/20 14:08 Consultations 03/09/20 14:39 ED Decision to Admit Stat 03/09/20 16:59 Consult Case Management - Discharge Planning Routine Consult Neurology Routine Procedures Performed --Brain MRI:No acute intracranial abnormality, specifically there is no evidence of acute or subacute infarct. No abnormal enhancement. --Head CT:No acute intracranial abnormality. Atrophy and microvascular ischemic changes. --Brain MRA:No significant stenosis, occlusion, or aneurysm within the [place] of Sin. --Neck MRA:No significant stenosis, occlusion, or dissection identified within the carotid or vertebral arteries. --ECHO: Left ventricle is normal in size. Mild concentric LVH. Left ventricle wall motion is normal. EF 55 to 60%. Aortic valve sclerosis mild, without significant aortic valvular stenosis. Trace mitral regurgitation. Ordered Studies 03/09/20 15:28 CT head/brain wo con Urgent 03/09/20 16:59 MR angio head wo con Urgent MR angio neck wo/w con Routine MR brain wo/w con Routine Hospital Course (1) Dizziness: (2) Right leg weakness: Strokelike symptoms Transient right leg weakness Chronic dizziness Chronic daily Migraine H/O Vertigo Follows with neuro-ophthalmology --Brain MRI:No acute intracranial abnormality, specifically there is no evidence of acute or subacute infarct. No abnormal enhancement. --Head CT:No acute intracranial abnormality. Atrophy and microvascular ischemic changes. --Brain MRA:No significant stenosis, occlusion, or aneurysm within the [place] of [place]. --Neck MRA:No significant stenosis, occlusion, or dissection identified within the carotid or vertebral arteries. --ECHO: Left ventricle is normal in size. Mild concentric LVH. Left ventricle wall motion is normal. EF 55 to 60%. Aortic valve sclerosis mild, without significant aortic valvular stenosis. Trace mitral regurgitation. --Orthostatics: Normal --LDL:58 --Continue aspirin, Lipitor --Appreciate Neurology Input --Right leg weakness resolved --Imaging studies not suggestive of any ischemic process/acute intracranial process --DD: autonomic dysfunction --Patient may be a candidate for injectable calcitonin gene receptor antagonist as having chronic daily migraines. --No indication for adding Plavix as per neurology. --Advised to follow-up with neurology as outpatient. (3) DM type 2 (diabetes mellitus, type 2): -Hgb A1c 6.6 01/2020 Hold oral agents Utilize NovoLog per protocol while hospitalized (4) HTN (hypertension): BP Stable continue amlodipine and lisinopril (5) DVT prophylaxis: SQ Lovenox Total Time Total Time Spent Total Time Spent (In Minutes): 38 minutes Total Time Includes: Examination of the Patient, Discharge Planning, Medication Reconciliation, Communication With Other Providers and Other Discharge Plan Discharge Items Patient Disposition: Home - Self-Care Reason For Visit: DIZZINESS Discharge Diagnosis: Stroke like symptoms Dizziness Migraine Activity: Resume your previous activity Exercise/Sports: Gradually increase as tolerated Non-emergency contact: Primary Care Provider and Neurologist Call non-emergency contact if: you have any medication questions, your symptoms worsen, your pain is not controlled, your pain is worsening, your pain is unusual for you, your pain is concerning for you and you have a fever Follow-up/Referrals: Indira Garcia, [Primary Care Provider] - Diet: Carb Consistent or DM2 and Heart Healthy Addtl Attending Provider Instructions: Follow-up with your primary care physician Dr. Indira Garcia 1 week as advised. Please call for appointment. Follow up with your Neurologist/Neuro-Ophthalmology at [facility] in 2 weeks Consider injectable calcitonin gene receptor antagonist for management of your migraine as suggested by your neurologist. Seek immediate medical attention if your symptoms reoccur or worsen Risk Factors for Stroke: You can reduce your chances of stroke by working with your medical provider to adopt a healthy lifestyle. Some specific ways to lower your chance of stroke are: * If you are a smoker, now is the time to stop smoking cigarettes * If you are diabetic, improve the control of your blood sugars * Avoid excessive amounts of alcohol * Control high blood pressure * Lose weight if you are overweight * Be sure to lead an active lifestyle * Eat a healthy diet low in salt, cholesterol and fat You should know about other risk factors for stroke that you are unable to control. These include: * Age 55 years or older * Male gender * Certain racial groups: , or / * Family History of Stroke, Mini stroke or Heart Attack * Sickle Cell Disease Follow Up: It is important for you to keep your follow up appointments with your medical provider. Who to Call and When: Medical Emergencies: Call 911 immediately if you experience any of the following warning signs and symptoms of Stroke: * Sudden numbness or weakness of the face, arm or leg, especially on one side of the body * Sudden confusion, trouble speaking or understanding * Sudden trouble seeing in one or both eyes * Sudden trouble walking, dizziness, loss of balance or coordination * Sudden severe headache with no cause Do not delay calling 911 if you experience any warning signs or symptoms of a stroke. Delay in seeking medical attention may affect what treatments can be given to you. . Pending Studies at Discharge: No Stand-Alone Forms: My [facility] [address], Smoking Cessation Medications and DC Order Prescriptions: Continued atorvastatin 20 mg tablet 20 mg PO DAILY RF: 0 multivitamin Tablet 1 tab PO DAILY RF: 0 lisinopril 20 mg tablet 20 mg PO DAILY RF: 0 amlodipine 5 mg tablet 2.5 mg PO DAILY RF: 0 calcium carbonate-vitamin D3 [Calcium 600 + D(3)] 600 mg(1,500mg) -200 unit Tablet 1 tab PO DAILY RF: 0 aspirin [Aspir-81] 81 mg Tablet,Delayed Release (Dr/Ec) 81 mg PO DAILY RF: 0 flaxseed oil 1,000 mg Capsule 1,000 mg PO Q OTHER DAY RF: 0 citalopram 20 mg tablet 20 mg PO DAILY RF: 0 famotidine 20 mg tablet 20 mg PO DAILY RF: 0 meclizine 25 mg tablet 25 mg PO TID PRN (Reason: Dizziness Or Vertigo) RF: 0 ferrous sulfate [iron] 325 mg (65 mg iron) Tablet 325 mg PO DAILY RF: 0 metformin 1,000 mg tablet 1,000 mg PO BID RF: 0 omeprazole 20 mg capsule,delayed release(DR/EC) 20 mg PO QAM RF: 0 vitamin A-vitamin C-vit E-min Tablet 1 tab PO DAILY RF: 0 cholecalciferol (vitamin D3) [Vitamin D3] 25 mcg (1,000 unit) Tablet 25 mcg PO DAILY RF: 0 Discharge Orders: Discharge Order (Routine); Ordered 03/10/20 Ordered By: Casey Dash Admission Data Admit Date/Time: 03/10/20 15:55 Attending Provider: Casey Dash Admit Provider: Isauro Blankenship Primary Care Provider: Indira Garcia Other Providers: Isauro Blankenship ; Precious Wilkins Other Interventions: Discharge Summary Assessment (RN) Last Done: 03/10/20 17:50
--- NOTE | 2020-03-16 11:00 | Coding Query ---
CODING QUERY To promote full compliance with coding requirements relating to patient care, provider participation is requested in all cases of marketing teacher uncertainty. Please assist us with the question(s) below: Coding Question(s): The Communication Note on 03/10/[address] Mcdonald documents, "At this point I see no need to maintain Plavix and aspirin together as we really have no evidence that this was a TIA (the history is vague and imaging really is negative for large vessel disease and small vessel TIAs certainly cannot be excluded and she does have some small vessel changes on MRI but frankly less she continues to do this I think the risk of dual antiplatelet therapy is higher than its benefit in the setting.". Please specify below, in your clinical opinion, regarding possible TIA. ( ) Possible TIA was treated ( x ) TIA is Ruled-out ( ) Other: Please Specify Physician's Response(s): Thank you Edita Mishra Principal Diagnosis: "that condition established after study, to be chiefly responsible for occasioning the admission of the patient to the hospital for care." Co-Existing Principal Diagnosis: "when two or more diagnoses equally meet the criteria for principal diagnosis as determined by the circumstances of admission, diagnostic work up, and/or therapy provided, and the Alphabetic Index, Tabular List, or another coding guideline does not provide sequencing direction, any one of the diagnoses may be sequenced first." "When the physician has documented what appears to be a current diagnosis in the body of the record, but has not included the diagnosis in the final diagnostic statement, the physician should be asked whether the diagnosis should be added." (Source Coding [facility] 2 QTR90. p3-4) [facility]
== END 2020-03-10 17:55 | disposition home or self-care (01) | DRG 93 ==
LOC: 2N 11:47 → ED 11:47 → SUATTDRO 15:23 → 2N 16:05